=== PATIENT | female | born 1965 | race Caucasian/White ===

== ENCOUNTER → 2017-05-25 | Outpatient (CLI) | payer OTHER ==
--- NOTE | 2017-05-25 12:05 | DIAGNOSTIC IMAGING REPORT ---
RIGHT SHOULDER MIN 2 VIEWS ROUTINE CLINICAL HISTORY: Rheumatoid arthritis. COMPARISON: None FINDINGS: Alignment of the right shoulder is anatomic. There is mild joint space narrowing and osteophytosis of the right acromioclavicular joint. Glenohumeral joint space is preserved. There is no fracture. There is a 2.5 cm oval-shaped density which projects over the right upper lung. IMPRESSION: 1. 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 2. Indeterminate 2.5 cm density which projects over the right upper lung. The appearance favors a pleural-based/chest wall lesion. A chest CT with contrast is recommended. Electronically signed by: Damion Bowie M.D. 05/25/2017 12:04 PM Dictated Date/Time: 05/25/2017 11:58 AM
--- NOTE | 2017-05-25 12:07 | DIAGNOSTIC IMAGING REPORT ---
RIGHT HAND MIN 3 VIEWS ROUTINE, LEFT HAND MIN 3 VIEWS ROUTINE HISTORY:52 [id number] Rheumatoid [id number] Long-term use of hydroxychloro Right COMPARISON: Foot radiographs 05/16/2010. TECHNIQUE: 3 views of the right hand and 3 views of the left hand. FINDINGS: RIGHT HAND: Central and marginal erosions are present within the metacarpal phalangeal joint of the second digit and to a lesser extent within the third MCP joint. There is associated significant soft tissue swelling within these distributions. Minimal erosions are present within the ulnar styloid. No significant proliferative changes. There is mild osteoarthritis of the first metacarpal phalangeal joint. No acute fracture or dislocation. LEFT HAND: Minimal marginal erosions are present within the metacarpal phalangeal joint of the third digit. Minimal erosions are present within the ulnar styloid. There is mild osteoarthritis of the first metacarpophalangeal joint. Mild soft tissue swelling involves the MCP joints without acute fracture or dislocation. IMPRESSION: 1. Central and marginal erosions are most pronounced within the second metacarpal phalangeal joint of the right hand. 2. Less extensive changes are present within the third metacarpophalangeal joints of the hands bilaterally. 3. Subtle erosion of the ulnar styloid bilaterally. 4. Moderate soft tissue swelling of the metacarpophalangeal joints. The above report was generated using voice recognition software. It may contain grammatical, syntax or spelling errors. Electronically signed by: Hong Oakley 05/25/2017 12:06 PM Dictated Date/Time: 05/25/2017 12:01 PM
[2017-05-25 13:41] LABS: BASO % 0.5 %; BASO ABS # 0.05 K/uL (0-0.2); COMPLETE YES; EOS % 1.4 %; HEMATOCRIT 45.3 % (37-47); IG% 0.2 %; LYMPH % 18.4 %; LYMPH ABS # 2.03 K/uL (1.2-3.4); MEAN CELL VOLUME 94.6 fL (80-100); MEAN CORPUSCULAR HEMOGLOBIN 31.1 pg (25-34); MEAN CORPUSCULAR HGB CONC 32.9 g/dl (32-36); MEAN PLATELET VOLUME 10.4 fL (7.4-10.4); MONO % 6.6 %; NEUT % 72.9 %; PLATELET COUNT 332 K/uL (130-400); RED BLOOD COUNT 4.79 M/uL (4.2-5.4); WHITE BLOOD COUNT 11.01 K/uL (4.8-10.8)
[2017-05-25 14:10] LABS: ALT/SGPT 21 U/L (12-78); AST/SGOT 9 U/L (15-37)
[2017-05-25 14:48] LABS: ALKALINE PHOSPHATASE 58 U/L (45-117); RHEUMATOID FACTOR 16.5 U/mL (0-15)
== END | disposition home or self-care (01) ==
LOC: C.RAD1850 11:14
PROVIDERS: ATTEND Internal Medicine Rheumatology
DX: M06.9 Rheumatoid arthritis, unspecified (principal); M25.511 Pain in right shoulder; Z79.899 Other long term (current) drug therapy

== ENCOUNTER → 2017-06-01 | Outpatient (CLI) | payer OTHER ==
--- NOTE | 2017-06-01 12:14 | DIAGNOSTIC IMAGING REPORT ---
(CHEST) THORAX WITHOUT CT DOSE: 879.45 mGycm HISTORY: R14.0 Abdominal [id number] Abdominal pain, epigastric TECHNIQUE: Multiaxial CT images of the chest were performed without contrast. COMPARISON: Right shoulder radiographs 05/25/2017. FINDINGS: No dominant thyroid nodule is seen. No pathologic adenopathy about the chest identified. Heart is normal in size without pericardial effusion. Thoracic aorta is normal in both course and caliber. There is a centrally cavitary ovoid circumscribed mass of the right upper lobe which is pleural-based laterally measuring 1.9 x 1.4 x 1.5 cm in AP, transverse and craniocaudal dimensions. No definite invasion of the adjacent rib or chest wall, however there is mild induration of the adjacent subpleural fat. 10 x 7 mm area of pleural-based nodularity the level the superior segment left lower lobe seen on image 70 which is indeterminate. There is a small left Bochdalek hernia. There is minimal subsegmental atelectasis and/or pleural parenchymal scarring of the medial segment right middle lobe. There is minimal biapical paraseptal emphysematous changes noted. Central airways are patent. The upper abdominal structures are within normal limits. Soft tissues are unremarkable. Bones are intact without suspicious lytic or blastic bony lesions identified. Multilevel endplate changes are seen throughout the spine, mild to moderate. IMPRESSION: 1. Centrally cavitary 1.9 cm nodule of the apical right upper lobe abuts the pleura and is suspicious for primary bronchogenic carcinoma or pleural neoplasm. Further evaluation with tissue sampling is recommended. 2. Pleural-based area of nodularity measuring 10 mm adjacent to the superior segment of the left upper lobe may reflect additional site of disease or area of pleural parenchymal scarring. Close attention at follow-up is needed. 3. No pathologic adenopathy or bony erosive changes are identified. Electronically signed by: Hong Oakley M.D. 06/01/2017 12:13 PM Dictated Date/Time: 06/01/2017 12:03 PM
== END | disposition home or self-care (01) ==
LOC: C.CTS 10:18
PROVIDERS: ATTEND Internal Medicine Rheumatology
DX: R22.2 Localized swelling, mass and lump, trunk (principal)

== ENCOUNTER → 2017-07-01 | Outpatient (CLI) | payer OTHER ==
--- NOTE | 2017-07-01 11:42 | DIAGNOSTIC IMAGING REPORT ---
PET/CT CLINICAL HISTORY: 52-year-old female with history of single pulmonary nodule of the right upper lobe. TECHNIQUE: PET/CT was performed from the base of the skull through the pelvis following the intravenous administration of 15.99 mCi of F18-FDG. Non-contrast CT imaging was performed over the same range without breath-hold for attenuation correction of PET images and anatomic correlation, but not for primary interpretation as it is not of standard diagnostic quality. CT DOSE: 1156.30 mGy.cm. COMPARISON: Chest CT from 06/01/2017. FINDINGS: HEAD AND NECK: There is no FDG-avid disease or significant lymphadenopathy in the imaged portions of the head and the neck. CHEST: Previously identified solid 17 mm nodule peripherally at the right apex (series 2 image 58) has a central cavitary component that is smaller on the current exam. Previously this nodule measured 19 mm. This is not significantly FDG avid (max SUV 1.8) equivalent to background and less than the mediastinum. No additional pulmonary nodule or infiltrate. There is no FDG-avid disease in the chest. There is no axillary, mediastinal, or hilar lymphadenopathy. There is no pleural or pericardial effusion. ABDOMEN/PELVIS: Below the diaphragm, tracer is distributed physiologically in the gastrointestinal and genitourinary tracts. There is no significant lymphadenopathy and no FDG-avid disease. MUSCULOSKELETAL: There is no FDG-avid or destructive bone lesion. IMPRESSION: 1. Non-FDG avid stable solid pulmonary nodule in the right apex with a lesser pronounced cavitary component on the current exam. The absence of FDG avidity and the cavitary configuration suggests an infectious or noninfectious inflammatory etiology. However, follow-up is recommended to ensure resolution. Electronically signed by: Eleuterio Bustillo M.D. 07/01/2017 11:41 AM Dictated Date/Time: 07/01/2017 11:27 AM
== END | disposition home or self-care (01) ==
LOC: C.PET 08:35
PROVIDERS: ATTEND Surgery
DX: R91.1 Solitary pulmonary nodule (principal)

== ENCOUNTER → 2017-08-17 | Outpatient (CLI) | payer OTHER ==
--- NOTE | 2017-08-17 11:37 | DIAGNOSTIC IMAGING REPORT ---
CAROTID DOPPLER NECK ART CLINICAL HISTORY: 52 years-old Female presenting with R09.89 Carotid bruit. TECHNIQUE: Real-time grayscale and color and spectral Doppler ultrasound imaging of the bilateral carotid arteries was performed. NASCET criteria was used in evaluating this study. COMPARISON: None. FINDINGS: Right: Common carotid: Patent. Peak systolic velocity 117 cm/s. Internal carotid artery: Patent. Peak systolic velocity 88 cm/s. External carotid artery: Patent. Peak systolic velocity 116 cm/s. Systolic ratio: 0.8. Left: Common carotid: Patent. Peak systolic velocity 101 cm/s. Internal carotid artery: Patent. Peak systolic velocity 78 cm/s. External carotid artery: Patent. Peak systolic velocity 114 cm/s. Systolic ratio: 0.8. Bilateral antegrade flow within the vertebral arteries. Reference ranges: Stenosis measurements are compared to reference velocity parameters. Normal ICA peak systolic velocity less than 125 cm/s. Normal ICA peak systolic velocity to common carotid artery velocity ratio is less than 2: less than 2 equates to less than 50% stenosis, 2-4 equates to 50-69% stenosis, greater than 4 equates to greater than or equal to 70% stenosis. Normal ICA end-diastolic velocity less than 40. Blood pressure Brachial: Right: 125/64 mmHg, Left: 137/67 mmHg. IMPRESSION: No hemodynamically significant stenosis seen within the carotid arteries. Electronically signed by: Eleuterio Bustillo M.D. 08/17/2017 11:36 AM Dictated Date/Time: 08/17/2017 11:35 AM
== END | disposition home or self-care (01) ==
LOC: C.ULTR 10:46
PROVIDERS: ATTEND Surgery
DX: R09.89 Other specified symptoms and signs involving the circulatory and respiratory systems (principal)

== ENCOUNTER → 2017-10-13 | Outpatient (CLI) | payer OTHER ==
--- NOTE | 2017-10-13 13:22 | DIAGNOSTIC IMAGING REPORT ---
(CHEST) THORAX WITHOUT CT DOSE: 416.16 mGycm HISTORY: R91.1 Lung nodule PT IS SCHEDULED FOR 10/13/17, ARRIVE AT [facility] TECHNIQUE: Multiaxial CT images of the chest were performed without contrast. A dose lowering technique was utilized adhering to the principles of ALARA. COMPARISON: Chest CT 06/01/2017. PET CT 07/01/2017. FINDINGS: Continued decrease in size in the right upper lobe nodule which currently measures 14 mm. This previously measured 17 mm. The central cavitation has also resolved. The central airways are patent. No pleural effusions. No pneumothorax. No new focal lung consolidations. Tiny fat-containing left-sided Bochdalek hernia. No suspicious lytic or blastic osseous lesions. No mediastinal or hilar lymphadenopathy. The visualized liver and spleen are unremarkable. IMPRESSION: Continued decrease in size in the 1.4 cm nodule within the right lung apex. The central cavitation has resolved. Therefore, this favors resolving inflammatory/infectious process rather than a neoplasm. Of note, a cavitary infection such as tuberculosis or fungal infection could have this appearance. Sputum cultures suggested for further evaluation. A [address] follow-up is recommended to ensure complete resolution. Electronically signed by: Chau Rubio M.D. 10/13/2017 1:21 PM Dictated Date/Time: 10/13/2017 12:57 PM
== END | disposition home or self-care (01) ==
LOC: C.CTS 12:35
PROVIDERS: ATTEND Surgery
DX: R91.1 Solitary pulmonary nodule (principal)

== ENCOUNTER → 2017-11-13 | Outpatient (CLI) | payer OTHER ==
[2017-11-13 12:13] LABS: BASO % 0.7 %; BASO ABS # 0.08 K/uL (0-0.2); EOS % 1.8 %; HEMATOCRIT 40.6 % (37-47); HEMOGLOBIN 13.3 g/dL (12.0-16.0); IG# 0.03 K/uL (0.00-0.02); LYMPH % 18.4 %; LYMPH ABS # 2.04 K/uL (1.2-3.4); MEAN CELL VOLUME 95.1 fL (80-100); MEAN CORPUSCULAR HEMOGLOBIN 31.1 pg (25-34); MEAN CORPUSCULAR HGB CONC 32.8 g/dl (32-36); MEAN PLATELET VOLUME 9.7 fL (7.4-10.4); MONO % 6.1 %; MONO ABS # 0.68 K/uL (0.11-0.59); NEUT % 72.7 %; NEUT ABS # 8.05 K/uL (1.4-6.5); PLATELET COUNT 316 K/uL (130-400); RED CELL DISTRIBUTION WIDTH CV 12.7 % (11.5-14.5); RED CELL DISTRIBUTION WIDTH SD 43.6 fL (36.4-46.3); WHITE BLOOD COUNT 11.08 K/uL (4.8-10.8)
[2017-11-13 12:45] LABS: ALBUMIN 3.7 gm/dl (3.4-5.0); ALT/SGPT 59 U/L (12-78); AST/SGOT 37 U/L (15-37); BLOOD UREA NITROGEN 18 mg/dl (7-18); CALCIUM 8.9 mg/dl (8.5-10.1); CARBON DIOXIDE 28 mmol/L (21-32); CREATININE 0.96 mg/dl (0.60-1.20); GLUCOSE 95 mg/dl (70-99); POTASSIUM 4.1 mmol/L (3.5-5.1); SODIUM 137 mmol/L (136-145); TOTAL PROTEIN 7.5 gm/dl (6.4-8.2)
[2017-11-13 12:54] LABS: ALKALINE PHOSPHATASE 53 U/L (45-117); CHOLESTEROL 225 mg/dl (0-200); LDL CHOLESTEROL CALCULATED 123 mg/dl
== END | disposition home or self-care (01) ==
LOC: C.LAB1850 11:12
PROVIDERS: ATTEND Nurse Practitioner Adult Health
DX: Z00.00 Encounter for general adult medical examination without abnormal findings (principal); R63.5 Abnormal weight gain; Z51.81 Encounter for therapeutic drug level monitoring

== ENCOUNTER → 2018-01-15 | Outpatient (CLI) | payer OTHER ==
[2018-01-15 16:14] LABS: BASO % 0.6 %; BASO ABS # 0.05 K/uL (0-0.2); EOS ABS # 0.08 K/uL (0-0.5); HEMATOCRIT 38.9 % (37-47); HEMOGLOBIN 13.1 g/dL (12.0-16.0); IG# 0.01 K/uL (0.00-0.02); LYMPH % 21.8 %; LYMPH ABS # 1.81 K/uL (1.2-3.4); MEAN CELL VOLUME 92.8 fL (80-100); MEAN CORPUSCULAR HEMOGLOBIN 31.3 pg (25-34); MEAN CORPUSCULAR HGB CONC 33.7 g/dl (32-36); MEAN PLATELET VOLUME 9.8 fL (7.4-10.4); MONO % 5.4 %; MONO ABS # 0.45 K/uL (0.11-0.59); NEUT % 71.1 %; NEUT ABS # 5.91 K/uL (1.4-6.5); PLATELET COUNT 287 K/uL (130-400); RED CELL DISTRIBUTION WIDTH CV 13.1 % (11.5-14.5); RED CELL DISTRIBUTION WIDTH SD 44.2 fL (36.4-46.3); WHITE BLOOD COUNT 8.31 K/uL (4.8-10.8)
[2018-01-15 16:33] LABS: ALBUMIN 3.7 gm/dl (3.4-5.0); ALT/SGPT 23 U/L (12-78); BLOOD UREA NITROGEN 23 mg/dl (7-18); CARBON DIOXIDE 26 mmol/L (21-32); CREATININE 0.95 mg/dl (0.60-1.20); GLUCOSE 95 mg/dl (70-99); POTASSIUM 4.2 mmol/L (3.5-5.1); SODIUM 137 mmol/L (136-145)
[2018-01-15 16:36] LABS: ALKALINE PHOSPHATASE 57 U/L (45-117); AST/SGOT 15 U/L (15-37); TOTAL PROTEIN 7.6 gm/dl (6.4-8.2)
== END | disposition home or self-care (01) ==
LOC: C.LAB1850 15:37
PROVIDERS: ATTEND Internal Medicine Rheumatology
DX: M05.741 Rheumatoid arthritis with rheumatoid factor of right hand without organ or systems involvement (principal)

== ENCOUNTER → 2018-06-28 | Outpatient (CLI) | payer OTHER ==
[2018-06-28 16:41] LABS: BASO % 0.8 %; BASO ABS # 0.05 K/uL (0-0.2); EOS % 1.5 %; HEMOGLOBIN 12.4 g/dL (12.0-16.0); IG# 0.01 K/uL (0.00-0.02); LYMPH ABS # 1.52 K/uL (1.2-3.4); MEAN CELL VOLUME 95.5 fL (80-100); MEAN CORPUSCULAR HEMOGLOBIN 31.2 pg (25-34); MEAN CORPUSCULAR HGB CONC 32.6 g/dl (32-36); MEAN PLATELET VOLUME 10.4 fL (7.4-10.4); MONO % 5.7 %; MONO ABS # 0.38 K/uL (0.11-0.59); NEUT % 68.8 %; NEUT ABS # 4.56 K/uL (1.4-6.5); PLATELET COUNT 300 K/uL (130-400); RED CELL DISTRIBUTION WIDTH CV 13.7 % (11.5-14.5); RED CELL DISTRIBUTION WIDTH SD 47.4 fL (36.4-46.3); WHITE BLOOD COUNT 6.62 K/uL (4.8-10.8)
[2018-06-28 17:03] LABS: ALBUMIN 3.7 gm/dl (3.4-5.0); ALKALINE PHOSPHATASE 61 U/L (45-117); ALT/SGPT 59 U/L (12-78); AST/SGOT 22 U/L (15-37); BLOOD UREA NITROGEN 17 mg/dl (7-18); CARBON DIOXIDE 26 mmol/L (21-32); CREATININE 0.92 mg/dl (0.60-1.20); GLUCOSE 89 mg/dl (70-99); POTASSIUM 3.9 mmol/L (3.5-5.1); SODIUM 136 mmol/L (136-145); TOTAL PROTEIN 7.6 gm/dl (6.4-8.2)
== END | disposition home or self-care (01) ==
LOC: C.LAB1850 15:39
PROVIDERS: ATTEND Internal Medicine Rheumatology
DX: M05.741 Rheumatoid arthritis with rheumatoid factor of right hand without organ or systems involvement (principal)

== ENCOUNTER → 2018-07-05 | Outpatient (CLI) | payer OTHER ==
--- NOTE | 2018-07-05 10:40 | DIAGNOSTIC IMAGING REPORT ---
CT SCAN OF THE CHEST WITHOUT IV CONTRAST CLINICAL HISTORY: Pulmonary nodule. COMPARISON STUDY: Chest CT scans dated 10/13/2017 and 06/01/2017. TECHNIQUE: CT scan of the thorax was performed from the thoracic inlet to the upper abdomen. Images are reviewed in the axial, sagittal, and coronal planes. IV contrast was not administered for this examination as per the referring clinician. A dose lowering technique was utilized adhering to the principles of ALARA. CT DOSE: 317.38 mGy.cm FINDINGS: Thyroid: Imaged portions of the thyroid gland are normal in size and attenuation. Thoracic aorta: The thoracic aorta is normal in caliber and demonstrates bovine variant arch anatomy. Heart: The heart is normal in size and without pericardial effusion. Lungs and pleural spaces: There is a persistent irregular 1.4 cm density at the right apex seen on image #49. This is similar in appearance to the 10/13/2017 examination. No new pulmonary nodule is identified. There is no airspace consolidation or pleural effusion. A small fat-containing Bochdalek hernia is seen at the right lung base. The trachea and central airways are clear. Mediastinum: There is no mediastinal lymphadenopathy. Amy: Not well assessed without IV contrast. Axillae: There is no axillary lymphadenopathy. Upper abdomen: There is a tiny hiatal hernia. Partially visualized upper abdominal viscera is otherwise grossly normal as imaged. Skeletal structures: The skeletal structures are osteopenic. Degenerative change is noted throughout the thoracic spine. No lytic or blastic bony lesions are seen. IMPRESSION: 1. There is unchanged appearance of an irregular 1.4 cm density at the right apex as compared to 10/13/2017. Differential considerations remain the same. Continued follow-up is recommended. 2. No new pulmonary lesion is identified. 3. There is no airspace consolidation or pleural effusion. Electronically signed by: Oneil Hidalgo M.D. 07/05/2018 10:38 AM Dictated Date/Time: 07/05/2018 10:31 AM
== END | disposition home or self-care (01) ==
LOC: C.CTS 10:20
PROVIDERS: ATTEND Surgery
DX: R91.8 Other nonspecific abnormal finding of lung field (principal)